=== PATIENT | female | born 1940 | race Hispanic/Latino ===

== ENCOUNTER 2017-04-01 08:07 | Day surgery (SDC) | payer MEDICARE ==
[2016-12-16 10:34] VITALS: BMI 46.4
[2017-04-01 08:56] LABS: BASO # 0.02 K/mm3 (0.0-2.0); BASO % 0.3 % (0.0-3.0); EOS # 0.3 (0.0-0.7); GRAN # 3.7 (1.4-6.5); HEMOGLOBIN 14.4 g/dL (12.0-16.0); LYMPH % 30.8 % (22.0-35.0); MEAN CELL VOLUME 94.1 fl (80.0-105.0); MEAN CORPUSCULAR HEMOGLOBIN 30.4 pg (25.0-35.0); MEAN CORPUSCULAR HGB CONC 32.3 g/dl (31.0-37.0); MEAN PLATELET VOLUME 10.4 fl (7.0-11.0); MONO # 0.5 (0.1-0.6); MONO % 7.9 % (1.0-6.0); RBC 4.74 10^6/uL (3.5-6.1); RED CELL DISTRIBUTION WIDTH 13.4 % (11.5-14.5); WHITE BLOOD COUNT 6.5 10^3/ul (4.5-11.0)
[2017-04-01 09:05] LABS: INR 0.99 (0.93-1.08); PARTIAL THROMBOPLASTIN TIME 33.5 Seconds (25.1-36.5); PROTHROMBIN TIME 11.4 SECONDS (9.4-12.5)
[2017-04-01 09:13] LABS: BLOOD UREA NITROGEN 22 mg/dL (7-21); CALCIUM 9.8 mg/dL (8.4-10.5); GFR AFRICAN-AMERICAN > 60; GFR NON-AFRICAN AMERICAN > 60; HDL CHOLESTEROL 91 mg/dL (29-60)
[2017-04-01] MEDS ORDERED: Lidocaine 2% Inj (20ml) ONE (09:16)
[2017-04-01] MEDS ORDERED: Iodixanol 320 MG/ML 200 ML BOTTLE IV ONE (09:17)
[2017-04-01] MEDS ORDERED: Nitroglycerin 50mg in D5W 50 MG/250 ML BOTTLE IV ONE (09:17)
[2017-04-01] MEDS ORDERED: HEPARIN SODIUM/NS 2,000 ML IV ONE (09:17)
[2017-04-01] MEDS ORDERED: Famotidine 20mg/50ml 20 MG/50 ML BAG IVPB ONE (09:18)
[2017-04-01] MEDS ORDERED: DiphenhydrAMINE 50 mg/ml Inj ONE (09:18)
[2017-04-01] MEDS ORDERED: Midazolam 2 MG/2 ML VIAL ONE ×2 (09:18→10:30)
[2017-04-01 09:22] LABS: LDL CHOLESTEROL 76 mg/dL (0-129)
[2017-04-01] MEDS ORDERED: Bacitracin 500 Units/gm Oint Foilpak UD TOP ONE (10:59)
[2017-04-01] MEDS ORDERED: Sodium Chloride 0.9% 1,000 ML IV SCH (11:00)
[2017-04-01 11:45] VITALS: TEMP 98.7
[2017-04-01 13:39] VITALS: RESP 16
[2017-04-01 13:42] VITALS: BP 113/60; PULSE 79; O2SAT 96
[2017-04-01] MEDS ORDERED: Bacitracin 500 Units/gm Oint Foilpak UD ONE (14:12)
--- NOTE | 2017-04-01 14:43 | CARD ---
APPROVED REPORT EKG Measurement Heart [id number] TN 142P26 [id number] <Conclusion> Normal sinus rhythm PRWP Minimal voltage criteria for LVH, may be normal variant Inferior infarct, age undetermined
--- NOTE | 2017-04-01 17:03 | CARD ---
APPROVED REPORT Procedure(s) performed: Selective Right and Left Coronary Angiography HISTORY The patient is a 76 year-old female with a history of : previous TN (> 7 days), most recent EF: 62%. (EF Method: RADIONUCLIDE), peripheral vascular disease, chronic lung disease, previous diagnostic cath, tobacco history() : The patient is a former smoker , previous PCI (The PCI date was 03/15/1992), hypertension , dyslipidemia , Pre-op clearance abnorma;l stress test. INDICATION The indication(s) include : positive stress test, Abnornmal myocardial perfusion defect,Fixed libertad-septal and probablya small area inferioor defect suspicious for reversible ischemia.. CASE TECHNIQUE The patient was brought electively to the Cardiac Catheterization Laboratory in a fasting state and was prepped and draped in a sterile manner. The left wrist was infiltrated with 2% Lidocaine subcutaneous anesthesia. A 6FR GLIDESHEATH ACCESS KIT sheath was inserted into the left radial artery without difficulty. Coronary angiography was performed using coronary diagnostic catheters. The left coronary system was accessed and visualized with a Diagnostic,5 Fr JL 4 catheter. The right coronary system was accessed and visualized with a Diagnostic ,5 Fr JR 4 catheter. The patient tolerated the procedure well and there were no complications associated with the procedure. Vessel Analysis The patient's coronary anatomy is right dominant. The left main coronary artery is a medium size vessel without significant stenosis. The left main bifurcates to the left anterior descending and circumflex. The left anterior descending artery is a medium size vessel with diffuse calcification noted throughout this vessel and without significant stenosis. The first diagonal branch is a medium size vessel with diffuse calcification noted throughout this vessel and without significant stenosis. The circumflex artery is a medium size vessel with diffuse calcification noted throughout this vessel and without significant stenosis. The first obtuse marginal branch is a small size vessel with diffuse calcification noted throughout this vessel and without significant stenosis. The right coronary artery is a medium size vessel with diffuse calcification noted throughout this vessel and without significant stenosis. There is a 55-60% stenosis in the proximal to mid segment. The right posterior descending artery is a medium size vessel without significant stenosis. The right posterolateral branch is a medium size vessel with diffuse calcification noted throughout this vessel and without significant stenosis. Left Ventricle LV gram could not be done as pt was falling off from table, very restless and was unable to lay down on table b/c of back pian. Conclusion Non Obstructive CAD, limited to Mid RCA 50-60% stenosis. LV gram not obtained,as pt was restless unable to lay down b/c of back pain and was falling off from table Recommendations Aggressive Medical TherapyCardiac Risk Reduction Program Weight Loss Reduction Program Pt. is cleared from wrist surgery In future if pt Needs Cath/ PTCA, pt should reduced her wait and should be able to lay down on cath table for the procedure, otherwise complication of procedure like coronary perforation and can occur.These were explained in details to pt after procedure. CC; Drs. Candido Renee / connie.
== END 2017-04-01 15:30 | disposition home or self-care (01) ==
LOC: CATH 08:07
PROVIDERS: ATTEND Internal Medicine Cardiovascular Disease
DX: I25.10 Atherosclerotic heart disease of native coronary artery without angina pectoris (principal); I25.2 Old myocardial infarction; Z87.891 Personal history of nicotine dependence; E78.5 Hyperlipidemia, unspecified; I10 Essential (primary) hypertension; I73.9 Peripheral vascular disease, unspecified; Z95.5 Presence of coronary angioplasty implant and graft
CPT/HCPCS: 36415; 80048; 80061; 85025; 85610; 85730; 86850; 86900; 93005; 93454; 99152; 99153; C1769; C1887 ×2; J1200; J1644 ×2; J2250; J2930; J3010; J7030; J7040

== ENCOUNTER 2018-06-27 13:33 | Outpatient (CLI) | payer MEDICARE | END 2018-06-27 13:34 | disposition home or self-care (01) | LOC: RAD 13:33 ==